=== PATIENT | female | born 1975 | race African-American/Black ===

== ENCOUNTER 2021-09-27 15:16 | Inpatient (IN) | payer OTHER ==
[2021-09-27] MEDS ORDERED: methaDONE HCL 10 MG TABLET (FOR DETOX USE ONLY) PO ONE (21:27)
[2021-09-27] MEDS ORDERED: MAGNESIUM HYDROX 2400MG/30ML ORAL SUSPENSION 30 ML CUP PO PRN (21:27)
[2021-09-27] MEDS ORDERED: ACETAMINOPHEN 325 MG TABLET (FP) PO PRN ×2 (21:27)
[2021-09-27] MEDS ORDERED: BISMUTH SUBSALICYLATE 524 MG/30 ML PO PRN (21:27)
[2021-09-27] MEDS ORDERED: MENTHOL/PHENOL 1 EACH UD MM PRN (21:27)
[2021-09-27] MEDS ORDERED: MAG HYDROX/AL HYDROX/SIMETH 30 ML UNIT-DOSE CUP PO PRN (21:27)
[2021-09-27] MEDS ORDERED: MAGNESIUM CITRATE 300 ML BOTTLE PO PRN (21:27)
[2021-09-27] MEDS ORDERED: P-EPHED 60MG/TRIPROLIDI 2.5MG TABLET PO PRN (21:27)
[2021-09-27 21:29] VITALS: BMI 24.5
[2021-09-27] MEDS ORDERED: cloNIDine HCL 0.1 MG TABLET PO ONE (21:33)
[2021-09-27] MEDS: THIAMINE HCL 100 MG TABLET (FP) PO SCH (22:51)
[2021-09-27] MEDS: diazePAM 5 MG TABLET PO SCH (22:51)
[2021-09-27] MEDS: NICOTINE 10 MG CARTRIDGE (INHALER) IH PRN (22:54)
[2021-09-28] MEDS: diazePAM 5 MG TABLET PO SCH ×4 (06:12→22:38)
[2021-09-28] MEDS: METHOCARBAMOL 500 MG TABLET PO PRN ×2 (06:13→22:57)
[2021-09-28] MEDS: NICOTINE 10 MG CARTRIDGE (INHALER) IH PRN (06:14)
[2021-09-28] MEDS ORDERED: methaDONE HCL 10 MG TABLET (FOR DETOX USE ONLY) ONE (09:34)
[2021-09-28] MEDS: PRENATAL VITAMINS W/ FOLIC ACID TABLET (FP) PO SCH (10:28)
[2021-09-28] MEDS: PANTOPRAZOLE 20 MG TABLET PO SCH (10:30)
[2021-09-28 11:54] LABS: HEMOGLOBIN 13.4 GM/dL (10.7-15.3); MCH 28.9 pg (25.7-33.7); MCHC 31.9 g/dl (32.0-36.0); MEAN CELL VOLUME 90.4 fl (80-96); MEAN PLT VOLUME 8.3 fl (7.5-11.1); PLATELET COUNT 277 10^3/uL (134-434); RBC 4.65 M/mm3 (3.60-5.2); RDW 15.7 % (11.6-15.6); WHITE BLOOD COUNT 7.7 K/mm3 (4.0-10.0)
[2021-09-28 12:28] LABS: ALBUMIN 3.6 g/dl (3.4-5.0); CALCIUM 9.5 mg/dL (8.5-10.1)
[2021-09-28 12:29] LABS: BLOOD UREA NITROGEN 10.9 mg/dL (7-18)
[2021-09-28 12:31] LABS: CREATININE 0.8 mg/dL (0.55-1.3)
[2021-09-28 12:33] LABS: BILIRUBIN,TOTAL 0.6 mg/dL (0.2-1); TOT PROT 7.4 g/dl (6.4-8.2)
[2021-09-28] MEDS: THIAMINE HCL 100 MG TABLET (FP) PO SCH (22:38)
[2021-09-28] MEDS: IBUPROFEN 400 MG TABLET (FP) PO PRN (22:39)
[2021-09-28] MEDS: MELATONIN 5 MG TABLETS PO PRN (22:57)
[2021-09-29] MEDS: diazePAM 5 MG TABLET PO SCH ×3 (06:25→22:52)
[2021-09-29] MEDS: METHOCARBAMOL 500 MG TABLET PO PRN ×2 (06:26→22:55)
[2021-09-29] MEDS: NICOTINE 10 MG CARTRIDGE (INHALER) IH PRN ×2 (06:52→18:39)
[2021-09-29] MEDS ORDERED: methaDONE HCL 10 MG TABLET (FOR DETOX USE ONLY) PO ONE (10:00)
[2021-09-29] MEDS: PANTOPRAZOLE 20 MG TABLET PO SCH (10:14)
[2021-09-29] MEDS: IBUPROFEN 400 MG TABLET (FP) PO PRN (10:15)
[2021-09-29] MEDS: PRENATAL VITAMINS W/ FOLIC ACID TABLET (FP) PO SCH (10:15)
[2021-09-29] MEDS: NICOTINE POLACRILEX 2 MG GUM BUC PRN (11:27)
[2021-09-29] MEDS: THIAMINE HCL 100 MG TABLET (FP) PO SCH (22:52)
[2021-09-29] MEDS: MELATONIN 5 MG TABLETS PO PRN (22:54)
[2021-09-30] MEDS: METHOCARBAMOL 500 MG TABLET PO PRN (06:07)
[2021-09-30] MEDS: diazePAM 5 MG TABLET PO SCH ×2 (06:07→18:46)
[2021-09-30] MEDS: ONDANSETRON *ODT* 4 MG TABLET SL PRN (06:07)
[2021-09-30] MEDS: NICOTINE POLACRILEX 2 MG GUM BUC PRN (06:21)
[2021-09-30] MEDS ORDERED: methaDONE HCL 10 MG TABLET (FOR DETOX USE ONLY) ONE (09:07)
[2021-09-30] MEDS: PRENATAL VITAMINS W/ FOLIC ACID TABLET (FP) PO SCH (10:07)
[2021-09-30] MEDS: PANTOPRAZOLE 20 MG TABLET PO SCH (10:08)
[2021-09-30] MEDS: NICOTINE 10 MG CARTRIDGE (INHALER) IH PRN (10:09)
[2021-09-30 18:17] LABS: EPI CELLS >36 /uL (0-25.1); HYALINE CASTS 1 /uL (0-3.1); PH,URINE 7.5 (5.0-8.0); URINE APPEARANCE CLEAR; URINE BACTERIA 1366 /uL (0-1359); URINE BILIRUBIN NEGATIVE (NEGATIVE); URINE COLOR YELLOW; URINE GLUCOSE (UA) NEGATIVE (NEGATIVE); URINE KETONE NEGATIVE (NEGATIVE); URINE LEUK ESTERASE 1+ (NEGATIVE); URINE NITRITE NEGATIVE (NEGATIVE); URINE PROTEIN NEGATIVE (NEGATIVE); URINE RBC 5 /uL (0-23.9); URINE UROBILINOGEN 0.2 mg/dL (0.2-1.0); URINE WBC 67 /uL (0-25.8)
[2021-09-30] MEDS: THIAMINE HCL 100 MG TABLET (FP) PO SCH (21:56)
[2021-10-01] MEDS ORDERED: diazePAM 5 MG TABLET PO ONE (06:00)
[2021-10-01] MEDS: ONDANSETRON *ODT* 4 MG TABLET SL PRN (06:14)
[2021-10-01] MEDS: NICOTINE POLACRILEX 2 MG GUM BUC PRN (06:41)
[2021-10-01 09:33] LABS: EPI CELLS >36 /uL (0-25.1); HYALINE CASTS 1 /uL (0-3.1); PH,URINE 6.5 (5.0-8.0); URINE APPEARANCE CLOUDY; URINE BACTERIA 1418 /uL (0-1359); URINE BILIRUBIN NEGATIVE (NEGATIVE); URINE COLOR YELLOW; URINE GLUCOSE (UA) NEGATIVE (NEGATIVE); URINE KETONE NEGATIVE (NEGATIVE); URINE LEUK ESTERASE TRACE (NEGATIVE); URINE NITRITE NEGATIVE (NEGATIVE); URINE PROTEIN NEGATIVE (NEGATIVE); URINE RBC 4 /uL (0-23.9); URINE UROBILINOGEN 0.2 mg/dL (0.2-1.0); URINE WBC 86 /uL (0-25.8)
[2021-10-01] MEDS ORDERED: methaDONE HCL 10 MG TABLET (FOR DETOX USE ONLY) PO ONE (10:00)
[2021-10-01] MEDS: PRENATAL VITAMINS W/ FOLIC ACID TABLET (FP) PO SCH (10:08)
[2021-10-01] MEDS: PANTOPRAZOLE 20 MG TABLET PO SCH (10:08)
[2021-10-01] MEDS: NICOTINE 10 MG CARTRIDGE (INHALER) IH PRN ×2 (10:10→17:05)
[2021-10-01] MEDS: SULFAMETHOXAZOLE/TRIMETHOPRIM 800MG/160MG D.S. TABLET PO SCH ×2 (14:20→22:14)
[2021-10-01] MEDS: MELATONIN 5 MG TABLETS PO PRN (22:14)
[2021-10-01] MEDS: METHOCARBAMOL 500 MG TABLET PO PRN (22:14)
[2021-10-01] MEDS: THIAMINE HCL 100 MG TABLET (FP) PO SCH (22:14)
[2021-10-02] MEDS: NICOTINE POLACRILEX 2 MG GUM BUC PRN (05:57)
[2021-10-02 08:52] VITALS: BP 125/58; PULSE 73; TEMP 96.8
== END 2021-10-02 09:50 | disposition home or self-care (01) | DRG 773 ==
LOC: YASAS 15:16 → Y3N 21:42
PROVIDERS: ADMIT Allergy & Immunology; ATTEND Allergy & Immunology
PROC: HZ2ZZZZ Detoxification Services for Substance Abuse Treatment (ICD-10-PCS; principal; 2021-09-27)
DX: F11.23 Opioid dependence with withdrawal (principal); F10.230 Alcohol dependence with withdrawal, uncomplicated; F13.20 Sedative, hypnotic or anxiolytic dependence, uncomplicated; F17.210 Nicotine dependence, cigarettes, uncomplicated; H55.00 Unspecified nystagmus; I10 Essential (primary) hypertension; K21.9 Gastro-esophageal reflux disease without esophagitis; N39.0 Urinary tract infection, site not specified; Z98.890 Other specified postprocedural states
CPT/HCPCS: 36415; 80053; 81003; 81025; 85027; 86780; 93005; 93010; C9803; J0735; Q0162; U0003; U0005